=== PATIENT | female | born 2000 | race Caucasian/White ===

== ENCOUNTER 2018-04-12 15:45 | Emergency (ER) | payer OTHER ==
--- NOTE | 2018-04-12 16:44 | CT ---
CT BRAIN: 04/12/18 HISTORY: Patient fell off horse. Hit fence with head one day ago. Complaining of nausea. Noncontrast enhanced CT images of the brain is obtained from base of the skull through the vertex. Br ain and bone windows obtained. CT images of the brain demonstrate the calvarium to be unremarkable. No evidence of calvarial fractur e seen. No evidence of acute intracranial masses or lesions seen. ventricles are of normal size. No evidence of subarachnoid hemorrhage seen. IMPRESSION: Unremarkable CT brain. POS: [facility]
--- NOTE | 2018-04-12 16:45 | CT ---
CT CERVICAL SPINE 04/12/18 HISTORY: Trauma. Patient fell off horse . Axial images are obtained with coronal and sagittal reconstructions. CT images cervical spine demonstrates no evidence of acute cervical spine fractures, subluxations, or bony lesions. Cervical spine alignment is within normal limits. The facets are also within normal li mits. The odontoid is unremarkable. IMPRESSION: Normal CT cervical spine. POS: [facility]
== END 2018-04-12 17:00 | disposition home or self-care (01) ==
LOC: ERS 15:45
DX: S09.90XA Unspecified injury of head, initial encounter (principal); S16.1XXA Strain of muscle, fascia and tendon at neck level, initial encounter; V80.010A Animal-rider injured by fall from or being thrown from horse in noncollision accident, initial encounter
CPT/HCPCS: 70450; 72125